=== PATIENT | male | born 1990 | race African-American/Black ===

== ENCOUNTER → 2016-11-10 | Outpatient (CLI) | payer OTHER ==
--- NOTE | ~2016-11-10 | CR181 ---
[facility] A Service of [facility] & [facility] RADIOLOGY TEXT RESULTS PATIENT: GLORIA GRADY LOCATION: [facility] : 86 UNIT #: [id number] AGE: [address]: Leatha Galeas MD SEX: M ORDER DR: [id number] [facility] [address] [place], [place] [address] [id number] O MR#: [id number] #: [id number] NAME: GLORIA GRADY : 1990 SEX: M STUDY DATE/TIME: 11/10/2016 13:32 UNIT: [facility] ROOM: STUDY DESCRIPTION: CR Lumbar Spine 2 or 3 Views Attending Physician: Leatha Galeas M.D. Referring Physician: Leatha Galeas M.D. Ordering Physician: Leatha Galeas M.D. Primary Care Physician: Leatha Galeas M.D. MEDICAL IMAGING REPORT This report is preliminary unless electronic signature is present EXAM Lumbar spine, 3 views, 11/10/2016 HISTORY Low back pain on the right side for 1 year with no known injury. FINDINGS AP and lateral projections of the lumbar segment show good mineralization of both anterior and posterior elements. They are all anatomically normal without indication of fracture, dislocation, or malignant change of a sclerotic or lytic type. There is no congenital defect noted. The sacroiliac joints are normal. IMPRESSION Normal lumbar spine. Dictated by... Dennis Amaya M.D. THIS IS AN ELECTRONICALLY VERIFIED REPORT Dennis Amaya M.D. at 11/11/2016 2:54 PM DEBBIE/tyler TD: 11/10/2016 23:57 JOB #: [id number] MEDICAL IMAGING REPORT COPY
== END | disposition home or self-care (01) ==
LOC: CRAD 13:01
DX: M54.5 Low back pain (principal)
CPT/HCPCS: 72100